=== PATIENT | male | born 1990 ===

== ENCOUNTER 2017-07-26 14:24 | Inpatient (IN) | payer MEDICAID, OTHER ==
[2017-07-26 18:23] LABS: Glucose,Whole Blood 325 mg/dL (75-99)
[2017-07-26] MEDS ORDERED: MAGNESIUM HYDROXIDE 2,400 MG/10 ML CUP PO PRN (18:43)
[2017-07-26] MEDS ORDERED: ACETAMINOPHEN TAB 325 MG TAB PO PRN (18:43)
[2017-07-26] MEDS ORDERED: MAG HYDROX/AL HYDROX/SIMETH 30 ML CUP PO PRN (18:43)
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
[2017-07-26] MEDS: INSULIN ASPART 100 UNIT/ML 1 ML 10 ML VIAL SQ SCH ×3 (18:47→20:13)
[2017-07-26 20:14] LABS: Glucose,Whole Blood 142 mg/dL (75-99)
[2017-07-26] MEDS: INSULIN DETEMIR 100 UNIT/ML 10 ML VIAL SQ SCH (20:15)
[2017-07-26] MEDS: METHADONE 5 MG TAB PO SCH (20:26)
[2017-07-26] MEDS: BACLOFEN 10 MG TAB PO SCH (20:27)
[2017-07-26] MEDS: levETIRAcetam 500 MG TAB PO SCH (20:27)
[2017-07-26] MEDS: LORazepam 1 MG TAB PO PRN (20:28)
[2017-07-26] MEDS: NICOTINE 21MG/24HR PATCH TRANSDERM SCH (20:43)
[2017-07-26 20:44] VITALS: BMI 22.5
[2017-07-26 20:56] LABS: Glucose,Whole Blood 83 mg/dL (75-99)
[2017-07-26] MEDS: GABAPENTIN 300 MG CAP PO SCH (22:35)
[2017-07-27 02:33] LABS: Glucose,Whole Blood 211 mg/dL (75-99)
[2017-07-27] MEDS: LORazepam 1 MG TAB PO PRN ×4 (02:33→19:47)
[2017-07-27] MEDS ORDERED: WATER FOR INJECTION, STERILE 10 ML IV ONE ×2 (04:05→20:49)
[2017-07-27] MEDS ORDERED: ZIPRASIDONE 20 MG VIAL IM ONE (04:05)
[2017-07-27] MEDS: ZIPRASIDONE 20 MG VIAL IM PRN ×2 (04:07→21:19)
[2017-07-27 06:18] LABS: Glucose,Whole Blood 153 mg/dL (75-99)
[2017-07-27] MEDS: INSULIN ASPART 100 UNIT/ML 1 ML 10 ML VIAL SQ SCH ×6 (07:46→17:44)
[2017-07-27] MEDS: ASPIRIN 81 MG PO SCH (08:01)
[2017-07-27] MEDS: BACLOFEN 10 MG TAB PO SCH ×3 (08:02→20:21)
[2017-07-27] MEDS: levETIRAcetam 500 MG TAB PO SCH ×2 (08:02→20:21)
[2017-07-27] MEDS: GABAPENTIN 300 MG CAP PO SCH ×3 (08:02→20:24)
[2017-07-27] MEDS: METHADONE 5 MG TAB PO SCH ×3 (08:04→20:45)
[2017-07-27] MEDS: NICOTINE 21MG/24HR PATCH TRANSDERM SCH (08:37)
[2017-07-27] MEDS: LISINOPRIL 5 MG TAB PO SCH ×2 (08:37→09:30)
[2017-07-27 08:45] LABS: HCT 35.7 % (39.0-53.0); HGB 11.6 gm/dL (13.0-17.5); MCHC 32.5 g/dL (31.0-37.0); MCV 86.4 fL (80.0-100.0); Mean Platelet Volume 7.4; Platelet Count 317 k/uL (150-450); RBC 4.13 m/uL (4.30-5.90); RDW 12.5 % (11.5-15.5); WBC 7.5 k/uL (3.8-10.6)
[2017-07-27] MEDS ORDERED: DULoxetine HCL 30 MG CAPSULE.DR PO SCH (09:00)
[2017-07-27 09:01] LABS: ALT 67 U/L (21-72); AST 58 U/L (17-59); Albumin 4.5 g/dL (3.5-5.0); Alkaline Phosphatase 112 U/L (38-126); Anion Gap 13 mmol/L; Blood Urea Nitrogen 18 mg/dL (9-20); Carbon Dioxide 29 mmol/L (22-30); Chloride 102 mmol/L (98-107); Cholesterol 166 mg/dL (<200); Glucose 70 mg/dL (74-99); HDL Cholesterol 66 mg/dL (40-60); LDL Cholesterol,Calculated 83 mg/dL (0-99); Potassium 3.9 mmol/L (3.5-5.1); Sodium 144 mmol/L (137-145); Total Bilirubin 0.3 mg/dL (0.2-1.3); Total Protein 7.2 g/dL (6.3-8.2); Triglycerides 84 mg/dL (<150)
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
--- NOTE | 2017-07-27 11:31 | XR ---
EXAMINATION TYPE: XR hand complete LT DATE OF EXAM: 07/27/2017 CLINICAL HISTORY: Finger fracture 3 weeks ago. TECHNIQUE: Frontal, lateral and oblique images of the left hand are obtained. COMPARISON: None. FINDINGS: Lateral view is suboptimal due to osseous overlap. Healing fracture distal metadiaphysis th ird metacarpal is present with callus formation. No acute fracture or dislocation is seen. Joint spac es are preserved. Overlying soft tissue is unremarkable. IMPRESSION: There is healing or subacute fracture distal metadiaphysis third metacarpal.
[2017-07-27] MEDS: IBUPROFEN 600 MG TAB PO PRN (11:40)
[2017-07-27] MEDS: hydrOXYzine PAMOATE 25 MG CAP PO PRN ×2 (11:47→17:22)
[2017-07-27 12:46] LABS: Glucose,Whole Blood 194 mg/dL (75-99)
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
[2017-07-27 17:28] LABS: Glucose,Whole Blood 223 mg/dL (75-99)
[2017-07-27 17:32] LABS: Hemoglobin A1C 11.9 % (4.0-6.0)
[2017-07-27] MEDS ORDERED: INSULIN ASPART 100 UNIT/ML 1 ML 10 ML VIAL SQ ONE (17:39)
[2017-07-27 20:17] LABS: Glucose,Whole Blood 233 mg/dL (75-99)
[2017-07-27] MEDS: INSULIN DETEMIR 100 UNIT/ML 10 ML VIAL SQ SCH (20:23)
[2017-07-28 02:25] LABS: Glucose,Whole Blood 197 mg/dL (75-99)
[2017-07-28] MEDS: IBUPROFEN 600 MG TAB PO PRN (04:40)
[2017-07-28] MEDS: LORazepam 1 MG TAB PO PRN ×2 (05:22→11:30)
[2017-07-28 05:56] LABS: Glucose,Whole Blood 174 mg/dL (75-99)
[2017-07-28] MEDS: NICOTINE 21MG/24HR PATCH TRANSDERM SCH (08:02)
[2017-07-28] MEDS: METHADONE 5 MG TAB PO SCH ×3 (08:02→21:21)
[2017-07-28] MEDS: levETIRAcetam 500 MG TAB PO SCH ×2 (08:02→21:21)
[2017-07-28] MEDS: CITALOPRAM HYDROBROMIDE 20 MG TAB PO SCH (08:03)
[2017-07-28] MEDS: INSULIN ASPART 100 UNIT/ML 1 ML 10 ML VIAL SQ SCH ×3 (08:03→18:12)
[2017-07-28] MEDS: ASPIRIN 81 MG PO SCH (08:03)
[2017-07-28] MEDS: LISINOPRIL 5 MG TAB PO SCH (08:03)
[2017-07-28] MEDS: BACLOFEN 10 MG TAB PO SCH ×3 (08:03→21:21)
[2017-07-28] MEDS: GABAPENTIN 300 MG CAP PO SCH ×3 (08:03→21:21)
[2017-07-28 09:17] LABS: Glucose,Whole Blood 40 mg/dL (75-99)
[2017-07-28 09:41] LABS: Glucose,Whole Blood 36 mg/dL (75-99)
[2017-07-28] MEDS ORDERED: GLUCAGON 1 MG/ML VIAL ONE (09:42)
[2017-07-28] MEDS ORDERED: DEXTROSE 10 % IN WATER 250 ML IV ONE (09:45)
[2017-07-28] MEDS ORDERED: DEXTROSE 5% IN WATER 500 ML IV SCH (10:00)
[2017-07-28] MEDS ORDERED: DEXTROSE 10% IN WATER 500 ML IV ONE (10:00)
[2017-07-28 10:02] LABS: Glucose,Whole Blood 119 mg/dL (75-99)
[2017-07-28 10:26] LABS: Glucose,Whole Blood 245 mg/dL (75-99)
[2017-07-28 10:26] LABS: Glucose,Whole Blood 135 mg/dL (75-99)
--- NOTE | 2017-07-28 11:03 | P.PN ---
Subjective Progress Note Date: 07/28/17 Principal diagnosis: diabetes Patient is a 27-year-old male with a past medical history of type 1 diabetes mellitus, prior stroke with residual left-sided weakness, chronic kidney disease, and gastroparesis who presented to the mental health unit secondary to overdose. Today his blood sugar was 174 before breakfast. He received his home dose of 10 units of novolog and ate breakfast. His blood sugar then dropped to 40 and he was given juice. We called and A team. IV was started he was given 1 amp of D50 and was started on a D 10 gtt. After eating and 1 amp of D150 his blood sugar was 132, it then went up to 150. On recheck 15 minutes later with gtt started it was 245. He will be maintained on D10 for 1 hour at 100 cc/hr and then sugar will be rechecked. Patient seen and examined at bedside.He complains of feeling tired and hungry. He denies chest pain and shortness of breath. He admitted yesterday that he has been using his mothers insulin and not checking his sugars. Patient was monitored multiple times for approximately 1 hours by myself. Objective - Vital Signs Vital signs: Vital Signs Temp 98.1 F 07/28/17 04:41 Pulse 109 H 07/28/17 04:41 Resp 16 07/28/17 04:41 BP 142/88 07/28/17 04:41 Pulse Ox 98 07/26/17 17:40 Intake & Output 07/27/17 07/28/17 07/28/17 18:59 06:59 18:59 Weight 61.4 kg - Exam On arrival General: non toxic, no distress, appears older than stated age, normal weight Head: atraumatic, normocephalic, symmetric Eyes: EOMI, no lid lag, anicteric sclera Cardiovascular: S1S2 reg, no murmur, positive posterior tibial pulse bilateral, no edema, capillary refill less than 2 seconds Lungs: CTA bilateral, no rhonchi, no rales , no accessory muscle use Neuro: + tremors Psych: lethargic, opening eyes to command and drinking On last check, Patient asking for pain medications and wanting to be prescribed norco on discharged and states that he wont be able to make it to his methadone appointment. I told the patient with with his history I will not be prescribing him norco on discharge. I again stated that we could work with him and his mother to get him to the methadone clinic on discharge. General: non toxic, no distress, appears older than stated age, normal weight Head: atraumatic, normocephalic, symmetric Eyes: EOMI, no lid lag, anicteric sclera ENT: Nose and ears atraumatic Neck: No thyromegaly, no cervical lymphadenopathy, trachea midline, supple Mouth: no lip lesion, mucus membranes moist Cardiovascular: S1S2 reg, no murmur, positive posterior tibial pulse bilateral, no edema, capillary refill less than 2 seconds Lungs: CTA bilateral, no rhonchi, no rales , no accessory muscle use Neuro: CN II-XI grossly intact, walking improved, no tremors noted Psych: Awake, alert, agressive. - Labs CBC & Chem 7: 07/27/17 08:17 07/28/17 09:33 Labs: Abnormal Lab Results - Last 24 Hours (Table) 07/27/17 07/27/17 07/27/17 Range/Units 08:17 12:40 17:25 Glucose (74-99) mg/dL POC Glucose (mg/dL) 194 H 223 H (75-99) mg/dL Hemoglobin A1c 11.9 H (4.0-6.0) % 07/27/17 07/28/17 07/28/17 Range/Units 20:15 02:07 05:45 Glucose (74-99) mg/dL POC Glucose (mg/dL) 233 H 197 H 174 H (75-99) mg/dL Hemoglobin A1c (4.0-6.0) % 07/28/17 07/28/17 07/28/17 Range/Units 09:14 09:30 09:33 Glucose 32 L* (74-99) mg/dL POC Glucose (mg/dL) 40 L 36 L (75-99) mg/dL Hemoglobin A1c (4.0-6.0) % 07/28/17 07/28/17 07/28/17 Range/Units 09:49 10:05 10:22 Glucose (74-99) mg/dL POC Glucose (mg/dL) 119 H 135 H 245 H (75-99) mg/dL Hemoglobin A1c (4.0-6.0) % Assessment and Plan Assessment: Type 1 diabetes mellitus, with episode of hypoglycemia -Accucheck q 15 mins X 3 completed, given 1 amp of D50 and started on D10 gtt at 100cc/hr X 1 hours, recheck sugar in 1 hours. Monitor for 4 hours from start of incident and then can be discharged. -Discharge Rx written for novolog flex pen 6 units with meal, levemir flex pen 10 units at night -hemoglobin A1c 11.9 Burn to left upper extremity -Silvadene cream and cover with dressing daily. Chronic pain - continue methadone add motrin - would avoid increasing methadone f/u at methadone clinic neuropathy - neurontin Hypertension, controlled -Continue with lisinopril -Follow blood pressures Cerebrovascular accident with resulting choreiform movements and seizure disorder -Aspirin daily -no indication for statin, LDL <70 -Continue with Keppra -Continue with walker -Physical therapy evaluation -Continue methadone for pain and baclofen for spasticity GERD -Not chronically on PPI and will not start on at this point in time Chronic kidney disease stage IV per patient- ruled out creatinine with Creatinine clearance of >60 Depression with suicide attempt -Your psych management Non psych meds written Rx for discharge.
[2017-07-28] MEDS: ZIPRASIDONE 20 MG VIAL IM PRN ×2 (11:30→23:03)
[2017-07-28 11:34] LABS: Glucose,Whole Blood 448 mg/dL (75-99)
[2017-07-28] MEDS: hydrOXYzine PAMOATE 25 MG CAP PO PRN ×2 (11:54→18:14)
[2017-07-28] MEDS ORDERED: INSULIN ASPART 100 UNIT/ML 1 ML 10 ML VIAL SQ ONE ×2 (13:35→16:00)
[2017-07-28 13:36] LABS: Glucose,Whole Blood >600 mg/dL (75-99)
[2017-07-28 14:41] LABS: Glucose,Whole Blood >600 mg/dL (75-99)
--- NOTE | 2017-07-28 15:49 | P.PN ---
Progress Note - Text Progress Note Date: 07/28/17 Interval History: Patient is a 27-year-old male who was admitted after transfer from another hospital due to a Valium overdose. This morning the patient was placed on one-to-one after 2 falls, was not following redirection to use a wheelchair and was demanding and complaining that he was having pain everywhere. Patient was seen this morning and he reported that the tremor increases when he is more active in his legs and arms and it was noticeable this morning. Patient reported that he cannot have his girlfriend pick him up because she is dealing with her grandmother is currently in the hospital and his mother and stepfather would not drive him to warn to go to the methadone clinic. Patient was not reporting any suicidal or homicidal ideation at that time. Mental Status: Appearance/Attitude: Patient was in a wheelchair, dressed in a casual clothes, made good eye contact and was superficially cooperative Behavior: Patient did not display any psychomotor retardation, but was irritable and easily agitated Speech/Language: Patient's speech was spontaneous and of normal volume and rhythm and he was coherent. Thought Process: patient was goal-directed, there was no evidence of loose associations or flights of ideas Thought Content: patient denied any auditory or visual hallucinations no delusions or paranoid ideation were elicited. Patient was increasingly demanding and agitated, stating that he needed his pain medication and wanted Vicodin prescribed because he was not to be able to get to the methadone clinic , demanding that he be discharged from the hospital and increasingly became agitated. Patient was also demanding that he have his Ativan Suicidal/Homicidal Ideation: patient denied any suicidal or homicidal ideation at this time. Sensorium/Cognition: Patient is alert and oriented to person, place, and time and his recent and remote memory are grossly intact. Mood/Affect: patient's mood is agitated and irritable and his affect is appropriate to his mood. Insight/Judgment: patient's insight and judgment are limited. Assessment: patient was initially agitated this morning and demanding stating that he needed Vicodin because he was not to be able to make an appointment at the methadone clinic because his mother and stepfather would not drive him there and his girlfriend was not able to do so. Patient later that morning became hypoglycemic and was treated for this, discharge was Considered once he is what sugars were stable however the patient became increasingly agitated demanding Ativan, demanding that he be discharged and demanding that he be given opiate pain medication because he could not attend the methadone clinic today. Patient at that time required SNOW Pool as he was becoming agitated hanging his arms on the wheelchair. Plan: Patient will continue on Celexa 10 mg every morning to target his depression and irritability, his other medications have been maintained and his insulin dosage has been adjusted by the medical scribe. Patient continues on methadone and his Ativan dose was decreased to 0.5 mg 3 times a day when necessary. Discharge will not be done today until the patient can arrange to attend a methadone clinic once he is discharged. P
[2017-07-28] MEDS: LORazepam 0.5 MG TAB PO PRN ×2 (15:51→22:27)
[2017-07-28 18:09] LABS: Glucose,Whole Blood 419 mg/dL (75-99)
[2017-07-28 20:41] LABS: Glucose,Whole Blood 234 mg/dL (75-99)
[2017-07-28] MEDS ORDERED: INSULIN DETEMIR 100 UNIT/ML 10 ML VIAL SQ SCH (21:00)
[2017-07-28] MEDS ORDERED: ZIPRASIDONE 20 MG VIAL IM ONE (23:02)
[2017-07-28] MEDS ORDERED: WATER FOR INJECTION, STERILE 10 ML IV ONE (23:02)
[2017-07-29 03:26] LABS: Glucose,Whole Blood 391 mg/dL (75-99)
[2017-07-29] MEDS: hydrOXYzine PAMOATE 25 MG CAP PO PRN (03:56)
[2017-07-29] MEDS: IBUPROFEN 600 MG TAB PO PRN (04:14)
[2017-07-29] MEDS: ZIPRASIDONE 20 MG VIAL IM PRN (04:36)
[2017-07-29] MEDS ORDERED: HALOPERIDOL LACTATE 5 MG/ML 1 ML VIAL IM STA (05:15)
[2017-07-29] MEDS ORDERED: LORazepam 2 MG/ML INJ IM STA (05:16)
[2017-07-29 06:16] LABS: Glucose,Whole Blood 451 mg/dL (75-99)
[2017-07-29] MEDS: GABAPENTIN 300 MG CAP PO SCH (08:08)
[2017-07-29] MEDS: NICOTINE 21MG/24HR PATCH TRANSDERM SCH (08:08)
[2017-07-29] MEDS: CITALOPRAM HYDROBROMIDE 20 MG TAB PO SCH (08:09)
[2017-07-29] MEDS: METHADONE 5 MG TAB PO SCH ×2 (08:09→15:05)
[2017-07-29] MEDS: BACLOFEN 10 MG TAB PO SCH (08:09)
[2017-07-29] MEDS: LISINOPRIL 5 MG TAB PO SCH (08:09)
[2017-07-29] MEDS: levETIRAcetam 500 MG TAB PO SCH (08:09)
[2017-07-29] MEDS: ASPIRIN 81 MG PO SCH (08:09)
[2017-07-29] MEDS: LORazepam 0.5 MG TAB PO PRN ×2 (08:11→13:56)
[2017-07-29] MEDS: INSULIN ASPART 100 UNIT/ML 1 ML 10 ML VIAL SQ SCH ×2 (08:14→13:03)
[2017-07-29 08:33] LABS: Glucose,Whole Blood 391 mg/dL (75-99)
--- NOTE | 2017-07-29 09:32 | P.DS ---
Providers Date of admission: 07/26/17 17:20 Expected date of discharge: 07/29/17 Attending physician: Olivia Louie MD Consults: 07/26/17 18:43 Consult Physician Routine Consulting Provider: Demetria Arrington Consult Reason/Comments: h&P Do you want consulting provider notified?: Already Contacted Primary care physician: [facility] Course: Discharge Diagnosis: Depressive disorder due to another medical condition, with depressive features Reason for Admission: Patient is a 27-year-old male who was transferred from [facility] after having taken an overdose of Valium in a suicide attempt. Patient states that he took 18 5 mg Valiums after he got into a fight with his sister he states he then went outside and threw them up and states it was an impulsive decision. He states he and his sister had gotten into an argument about the patient's phone being turned off when she contacted his old roommate she blamed him for not treating the roommate well and getting into an argument with him and having his phone turned off. Patient states that he had been living with this roommate for the last 2 months, patient states that he had a stroke in March and was living with his mother and then moved in with this gentleman who was all old friend. He states that his roommate is iraheta and that the patient was asked by the roommate to sleep with him. Patient states when he brought his girlfriend over the roommate kicked him out and he moved in with his sister. Patient had been recently discharged from [facility] where he was from July 14 to the going there stating he was suicidal just so that he could have a bed as he states he had no place to live at that time. Patient states when he was arguing with his sister he threatened to kill himself his sister egg him on and to get her to shut up he took the pills, then went outside threw them up and she called EMS. Patient states that he was fighting with his former roommate when he went to [facility] and return to live there with him once he was discharged. Patient states that he has never had any psychiatric treatment prior to his having a stroke in March 2017. Patient states he had not been feeling well at work and had gone home states that he was vomiting at the time and the next thing he knows he awakened in the hospital. He states that he was told that he had a brain stem stroke, caused by a low sodium an that he had renal failure. Patient states that after the stroke he began to have tremors and states he was placed on Valium for this while in the hospital. He reports that initially the neurologist started him on 2 mg twice a day and that at [facility] city been increased to 5 mg twice a day. He states that he was also placed on amantadine and Sinemet either neurologist when in the hospital and he stopped the medications at home because he thought it was making him worse. He describes flapping tremors and cramping in his arms and states that he was using a wheelchair at home to ambulate. He then was using a walker. He was also placed on Prozac while in the hospital 20 mg twice a day which was increased to 50 mg by his primary care physician and he states that he did not feel that the Prozac had been effective at all. He states when he returned home he wasn't able to do things secondary to the tremors and was hating his life. He states that about 2 months ago the tremors decreased. Patient states that when he was in [facility] he was begun on Cymbalta 30 mg twice a day, Abilify and trazodone and reports that he did not feel that any of these medications had been successful either. He was to follow-up at [place] after his discharge from [facility] she never did. Patient states that he was also placed on Keppra after the stroke secondary to seizures that he had afterwards. He reports no seizures since he has been taking his Keppra. Patient states on the Cymbalta he has not noticed that he is any different still not happy, did not increase his anger and he states that while he was at [facility] he got into more arguments and fights there area patient states that when he was in high school he would get into fights quite frequently but reports no difficulties since that time. States that he is easily irritated now by people being "ignorant" and states he is in more verbal disagreements and fights with people. He states that prior to March he was not having any of these difficulties, was not feeling depressed and has no prior history of suicidal thoughts or suicidal attempts. He states once he had the stroke that he got very few visits from friends, his ex girlfriend left him on the day that he had the stroke and that these are the reasons he was feeling increasingly depressed at home. Patient had no follow-up psychiatric care after his discharge from the hospital in March and did not follow-up with outpatient appointments after his discharge from [facility]. Patient has no prior psychiatric history and does not endorse a history of any psychotic symptoms, manic symptoms and states that his symptoms of depression started in March after he had the stroke. Patient states that he has no prior history of suicide attempts. Mental status on admission : Appearance/Attitude: Patient was appropriately dressed, was not using a wheelchair to ambulate and did not have any evidence of an unsteady gait or any tremors in his hands or legs. Patient made good eye contact and was cooperative. Behavior: Patient did not display any psychomotor agitation or retardation. Speech/Language: Patient's speech was spontaneous of normal volume and rhythm and he was coherent Thought Process: Patient was goal-directed there is no evidence of loose associations or flight of ideas Thought Content: Patient denied any auditory or visual hallucinations no paranoid or delusional ideation was elicited. Patient stated that he slept well and states that he remains depressed due to his stroke and the difficulties that he has had since that time. Suicidal/Homicidal Ideation: Patient denied any current suicidal or homicidal ideation Sensorium/Cognition: Patient is alert and oriented to person place and time and his recent and remote memory are grossly intact Mood/Affect: patient's mood is slightly depressed, affect is appropriate Insight/Judgment: patient's insight and judgment are fair Hospital Course: Patient was admitted on a voluntary basis, routine observation was ordered as well as group and activity therapy. Patient had routine laboratory studies ordered as well as a medical consultation. Patient reported that the Cymbalta and Abilify and trazodone were not helpful at all and he was continuing to feel depressed as well as easily agitated. Patient denied any suicidal ideation during his hospital stay and we discussed starting Celexa to see if this would decrease his agitation and irritability as well as improve his depressive symptoms. Patient was begun on Celexa 20 mg a day and was discontinued from his Abilify, trazodone, and Cymbalta. Patient was continued on Keppra, lisinopril, Neurontin, baclofen, insulin and was placed on methadone for his pain. Patient was also on Ativan when necessary, and his Valium was discontinued. Patient was also using a wheelchair to ambulate, on 2 occasions patient fell once while trying to put socks on and once because he was refusing to use the wheelchair patient did not sustain any injuries from his falls. Patient was preparing for discharge yesterday when his blood sugar dropped low and required IV glucose treatment and due to his continued elevated blood sugar throughout the afternoon his discharge was held until today. Patient continued to have episodes on the unit where he would be demanding increase in his pain medication, Ativan more frequently and would become agitated pounding on the wheelchair and then patient would calm apologize for his behavior and again request an increase in his pain medication. Patient reported no suicidal ideation, there is no evidence of any psychotic process while on the unit and the patient was seen by the diabetic teacher for the hospital prior to his discharge. Patient had plans to live with his girlfriend however she was caring for her grandmother in the hospital so the patient will return to live with his parents. Patient was agreeable for discharge. Patient's blood sugars are tending to run in the 300s since his episode of hypoglycemia yesterday, his insulin was adjusted yesterday to 8 units from 10, patient had an episode of hypoglycemia yesterday with sugars in the 40s and patient will follow-up with his primary care physician to continue to adjust his insulin once he is out of the hospital and into his regular routine Laboratory Last Values WBC 7.5 k/uL (3.8-10.6) 07/27/17 08:17 RBC 4.13 m/uL (4.30-5.90) L 07/27/17 08:17 Hgb 11.6 gm/dL (13.0-17.5) L 07/27/17 08:17 Hct 35.7 % (39.0-53.0) L 07/27/17 08:17 MCV 86.4 fL (80.0-100.0) 07/27/17 08:17 MCH 28.0 pg (25.0-35.0) 07/27/17 08:17 MCHC 32.5 g/dL (31.0-37.0) 07/27/17 08:17 RDW 12.5 % (11.5-15.5) 07/27/17 08:17 Plt Count 317 k/uL (150-450) 07/27/17 08:17 Sodium 144 mmol/L (137-145) 07/27/17 08:17 Potassium 3.9 mmol/L (3.5-5.1) 07/27/17 08:17 Chloride 102 mmol/L (98-107) 07/27/17 08:17 Carbon Dioxide 29 mmol/L (22-30) 07/27/17 08:17 Anion Gap 13 mmol/L 07/27/17 08:17 BUN 18 mg/dL (9-20) 07/27/17 08:17 Creatinine 1.24 mg/dL (0.66-1.25) 07/27/17 08:17 Est GFR (MDRD) Af Amer >60 (>60 ml/min/1.73 sqM) 07/27/17 08:17 Est GFR (MDRD) Non-Af >60 (>60 ml/min/1.73 sqM) 07/27/17 08:17 Glucose 624 mg/dL (74-99) H* 07/28/17 14:51 POC Glucose (mg/dL) 391 mg/dL (75-99) H 07/29/17 08:07 POC Glu Blending Plant Operator ID Devora Thurman 07/29/17 08:[address] Glu mg/dL 295 07/27/17 08:17 Hemoglobin A1c 11.9 % (4.0-6.0) H 07/27/17 08:17 Calcium 10.0 mg/dL (8.4-10.2) 07/27/17 08:17 Total Bilirubin 0.3 mg/dL (0.2-1.3) 07/27/17 08:17 AST 58 U/L (17-59) 07/27/17 08:17 ALT 67 U/L (21-72) 07/27/17 08:17 Alkaline Phosphatase 112 U/L (38-126) 07/27/17 08:17 Total Protein 7.2 g/dL (6.3-8.2) 07/27/17 08:17 Albumin 4.5 g/dL (3.5-5.0) 07/27/17 08:17 Triglycerides 84 mg/dL (<150) 07/27/17 08:17 Cholesterol 166 mg/dL (<200) 07/27/17 08:17 LDL Cholesterol, Calc 83 mg/dL (0-99) 07/27/17 08:17 HDL Cholesterol 66 mg/dL (40-60) H 07/27/17 08:17 TSH 2.110 mIU/L (0.465-4.680) 07/27/17 08:17 Allergies No Known Allergies Allergy (Verified 07/26/17 20:48) Discharge Mental Status: Appearance/Attitude: Patient is dressed in casual clothes, using a wheelchair to assist with his ambulation makes good eye contact and is cooperative. Patient has evidence of tremors and unsteady gait when ambulating without the use of the wheelchair as a walker Behavior: Patient does not display any psychomotor agitation or retardation. Speech/Language: Patient's speech is spontaneous and of normal volume and rhythm and he is coherent Thought Process: Patient is goal-directed there is no evidence of loose association or flight of ideas Thought Content: Patient denies auditory or visual hallucinations, no paranoid or delusional ideation is elicited. Patient slept well and states he is eating well. Suicidal/Homicidal Ideation: Patient denies any current suicidal or homicidal ideation. Sensorium/Cognition: Patient is alert and oriented to person, place, time and his recent and remote memory are grossly intact Mood/Affect: Patient's mood is euthymic, his affect is appropriate Insight/Judgment: Patient's insight and judgment are fair Risk Assessment: Patient's risk is moderate due to his noncompliance with medication Discharge Plan: Patient will be discharged on Keppra, lisinopril, Neurontin, baclofen, insulin and will continue on Celexa 20 mg and Vistaril 50 mg 4 times a day when necessary to target his anxiety and depression. Patient will be followed at a methadone clinic in [place] where he will go today upon leaving the hospital to continue on his methadone for pain. Patient was also instructed to follow-up with his primary care physician, patient currently has no neurologist following him but will investigate this with his primary care physician. Patient will also follow up with [facility] in [place]. Patient is given prescriptions for the above medications and will live with his parents. Patient Condition at Discharge: Stable Plan - Discharge Summary Discharge Rx Participant: No New Discharge Prescriptions: New RX: Aspirin 81 mg PO DAILY chew RX: Baclofen [Lioresal] 10 mg PO TID #45 tab RX: Gabapentin [Neurontin] 600 mg PO TID #45 cap Insulin Aspart [NovoLOG Flexpen] 6 units SQ AC-TID #5 pen Insulin Glargine,Hum.rec.anlog [Lantus Solostar] 10 unit SQ HS #5 pen RX: levETIRAcetam [Keppra] 1,000 mg PO Q12HR #30 tab RX: Lisinopril [Zestril] 5 mg PO DAILY #30 tab RX: Citalopram Hydrobromide [CeleXA] 20 mg PO DAILY #14 tab RX: hydrOXYzine PAMOATE [Vistaril] 50 mg PO Q6HR PRN #28 cap PRN Reason: Anxiety RX: Methadone [Dolophine] 5 mg PO TID tab Continue RX: Ondansetron [Zofran ODT] 4 mg PO Q12HR PRN PRN Reason: Nausea RX: SILVER sulfADIAZINE Cream [Silvadene 1% Cream] 1 applic TOPICAL BID Discontinued ARIPiprazole [Abilify] 2 mg PO DAILY Cyclobenzaprine [Flexeril] 5 mg PO TID Diazepam [Valium] 2 mg PO BID PRN PRN Reason: Anxiety Haloperidol [Haldol] 0.5 tab PO DAILY HYDROcodone/APAP 10-325MG [[place] 10-325] 1 tab PO TID Insulin Glargine [Lantus] 20 unit SQ HS INSULIN LISPRO (HumaLOG) [HumaLOG] 1 - 10 units SQ ACHS Methadone [Dolophine] 5 mg PO Q12HR RX: traZODone HCL 50 mg PO HS No Action Baclofen [Lioresal] 10 mg PO TID levETIRAcetam [Keppra] 1,000 mg PO Q12HR Lisinopril [Zestril] 5 mg PO DAILY Discharge Medication List Baclofen [Lioresal] 10 mg PO TID 07/26/17 [History] Lisinopril [Zestril] 5 mg PO DAILY 07/26/17 [History] RX: Ondansetron [Zofran ODT] 4 mg PO Q12HR PRN 07/26/17 [History] RX: SILVER sulfADIAZINE Cream [Silvadene 1% Cream] 1 applic TOPICAL BID [History] levETIRAcetam [Keppra] 1,000 mg PO Q12HR 07/26/17 [History] Insulin Aspart [NovoLOG Flexpen] 6 units SQ AC-TID #5 pen 07/28/17 [Rx] Insulin Glargine,Hum.rec.anlog [Lantus Solostar] 10 unit SQ HS #5 pen 07/28/17 [ Rx] RX: Aspirin 81 mg PO DAILY chew 07/28/17 [Rx] RX: Baclofen [Lioresal] 10 mg PO TID #45 tab 07/28/17 [Rx] RX: Gabapentin [Neurontin] 600 mg PO TID #45 cap 07/28/17 [Rx] RX: Lisinopril [Zestril] 5 mg PO DAILY #30 tab 07/28/17 [Rx] RX: levETIRAcetam [Keppra] 1,000 mg PO Q12HR #30 tab 07/28/17 [Rx] RX: Citalopram Hydrobromide [CeleXA] 20 mg PO DAILY #14 tab 07/29/17 [Rx] RX: Methadone [Dolophine] 5 mg PO TID tab 07/29/17 [Rx] RX: hydrOXYzine PAMOATE [Vistaril] 50 mg PO Q6HR PRN #28 cap 07/29/17 [Rx] Follow up Appointment(s)/Referral(s): intake,intake [Other] - 07/29/17 [facility] [Outside] - 08/03/17 1:00 pm (08-03-17 @ 1:00 for an intake at [place] Location) Essie Rutherford MD [Primary Care Provider] - 07/31/17 8:00 am Patient Instructions/Handouts: Depression (GEN), Type 1 Diabetes in Adults (GEN ), Suicide Prevention for Adults (GEN) Activity/Diet/Wound Care/Special Instructions: Follow-up appointment on 2017 at anytime, no later than 4:30pm with Dr. Mckoy at [facility], [id number], [facility], for Methadone dispensing/prescribing r/t pain. [facility] [employer] provides transportation to medical appointments. Please call and scheduled at least 3 business days in advance. Discharge Disposition: HOME SELF-CARE
[2017-07-29 10:54] VITALS: BP 117/64; PULSE 93; RESP 18; TEMP 98
[2017-07-29 13:20] LABS: Glucose,Whole Blood 385 mg/dL (75-99)
== END 2017-07-29 15:17 | disposition home or self-care (01) | DRG 884 ==
LOC: 3MHU 17:20
PROVIDERS: ADMIT Psychiatry & Neurology Psychiatry; ATTEND Psychiatry & Neurology Psychiatry
DX: F06.31 Mood disorder due to known physiological condition with depressive features (principal); E10.22 Type 1 diabetes mellitus with diabetic chronic kidney disease; E10.649 Type 1 diabetes mellitus with hypoglycemia without coma; I69.354 Hemiplegia and hemiparesis following cerebral infarction affecting left non-dominant side; N18.4 Chronic kidney disease, stage 4 (severe); E10.43 Type 1 diabetes mellitus with diabetic autonomic (poly)neuropathy; E10.65 Type 1 diabetes mellitus with hyperglycemia; F17.200 Nicotine dependence, unspecified, uncomplicated; F41.9 Anxiety disorder, unspecified; G40.909 Epilepsy, unspecified, not intractable, without status epilepticus; G89.29 Other chronic pain; I12.9 Hypertensive chronic kidney disease with stage 1 through stage 4 chronic kidney disease, or unspecified chronic kidney disease; K21.9 Gastro-esophageal reflux disease without esophagitis; K31.84 Gastroparesis; M54.9 Dorsalgia, unspecified; R25.1 Tremor, unspecified; R45.1 Restlessness and agitation; T22.012A Burn of unspecified degree of left forearm, initial encounter; T21.02XA Burn of unspecified degree of abdominal wall, initial encounter; T42.4X2A Poisoning by benzodiazepines, intentional self-harm, initial encounter; Z79.4 Long term (current) use of insulin; Z79.899 Other long term (current) drug therapy; Z79.891 Long term (current) use of opiate analgesic; Z91.19 Patient's noncompliance with other medical treatment and regimen; Z59.0 Homelessness; Z82.49 Family history of ischemic heart disease and other diseases of the circulatory system
CPT/HCPCS: 80053; 80061; 82947; 83036; 84443; 85027

== ENCOUNTER 2017-11-13 15:56 | Emergency (ER) | payer OTHER ==
[2017-11-13] MEDS ORDERED: DIPH,PERTUS(ACELL)TETVAC-LF 0.5 ML VIAL IM ONE ×2 (16:09→23:34)
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
[2017-11-13] MEDS ORDERED: ceFAZolin 2,000 MG in DEXTROSE/WATER 1 50ML.BAG IVPB STA (16:40)
[2017-11-13] MEDS ORDERED: ceFAZolin IN SWFI 2 GM/20 ML SYRINGE IVP STA (16:43)
[2017-11-13 16:53] LABS: Basophils # (A) 0.1 k/uL (0-0.2); Basophils % (A) 1 %; Eosinophils # (A) 0.6 k/uL (0-0.7); Eosinophils % (A) 11 %; HCT 28.9 % (39.0-53.0); Lymphocytes # (A) 1.6 k/uL (1.0-4.8); Lymphocytes % (A) 31 %; MCH 27.7 pg (25.0-35.0); MCHC 34.6 g/dL (31.0-37.0); MCV 80.2 fL (80.0-100.0); Mean Platelet Volume 8.2; Monocytes # (A) 0.2 k/uL (0-1.0); Monocytes % (A) 5 %; Neutrophils # (A) 2.5 k/uL (1.3-7.7); Neutrophils % (A) 50 %; Platelet Count 195 k/uL (150-450); RBC 3.61 m/uL (4.30-5.90); RDW 12.7 % (11.5-15.5)
[2017-11-13 16:58] LABS: Amphetamine Screen,Urine Not Detected (NotDetected); Barbiturate Screen,Urine Not Detected (NotDetected); Benzodiazepines Screen,Urine Not Detected (NotDetected); Cocaine Screen,Urine Not Detected (NotDetected); Methadone Screen, Urine Not Detected (NotDetected); Opiate Screen,Urine Detected (NotDetected); Oxycodone Screen, Urine Not Detected (NotDetected); Phencyclidine Screen,Urine Not Detected (NotDetected); Tricyclic Antidepressant,Urine Not Detected (NotDetected); Urn Cannabinoid Scrn Not Detected (NotDetected)
[2017-11-13 17:05] LABS: ALT 48 U/L (21-72); AST 29 U/L (17-59); Acetaminophen <10.0 ug/mL; Albumin 3.8 g/dL (3.5-5.0); Alcohol <10 mg/dL; Alkaline Phosphatase 82 U/L (38-126); Anion Gap 11 mmol/L; Blood Urea Nitrogen 25 mg/dL (9-20); Calcium 9.6 mg/dL (8.4-10.2); Carbon Dioxide 28 mmol/L (22-30); Chloride 95 mmol/L (98-107); Glucose 430 mg/dL (74-99); Potassium 4.3 mmol/L (3.5-5.1); Salicylate <1.0 mg/dL; Sodium 134 mmol/L (137-145); Total Bilirubin 0.5 mg/dL (0.2-1.3); Total Protein 5.8 g/dL (6.3-8.2)
[2017-11-13 17:06] LABS: Prothrombin Time 9.8 sec (9.0-12.0)
[2017-11-13] MEDS ORDERED: SODIUM CHLORIDE 0.9% 500 ML IV ONE (17:16)
[2017-11-13] MEDS ORDERED: INSULIN REGULAR 100 UNIT/ML VIAL IV ONE (17:16)
[2017-11-13] MEDS: LORazepam 2 MG/ML INJ IV STA ×2 (17:20→19:52)
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
[2017-11-13] MEDS ORDERED: LIDOCAINE 1% INJ 10MG/ML (20 ML MDV) SQ ONE (17:54)
[2017-11-13] MEDS: MORPHINE SULFATE 2 MG/ML SYRINGE IVP PRN ×2 (19:17→23:39)
[2017-11-13 20:03] LABS: Basophils % (A) 1 %; Eosinophils # (A) 0.5 k/uL (0-0.7); Eosinophils % (A) 11 %; HCT 27.8 % (39.0-53.0); HGB 9.7 gm/dL (13.0-17.5); Lymphocytes # (A) 1.7 k/uL (1.0-4.8); Lymphocytes % (A) 33 %; MCH 27.7 pg (25.0-35.0); MCV 79.2 fL (80.0-100.0); Mean Platelet Volume 8.1; Monocytes # (A) 0.2 k/uL (0-1.0); Monocytes % (A) 5 %; Neutrophils # (A) 2.5 k/uL (1.3-7.7); Neutrophils % (A) 49 %; Platelet Count 201 k/uL (150-450); RBC 3.51 m/uL (4.30-5.90); RDW 12.7 % (11.5-15.5)
[2017-11-13 21:12] LABS: Glucose,Whole Blood 278 mg/dL (75-99)
[2017-11-14 01:30] LABS: Glucose,Whole Blood 307 mg/dL (75-99)
[2017-11-14] MEDS: CEPHALEXIN 500 MG CAP PO SCH ×2 (02:45→13:29)
[2017-11-14 02:51] VITALS: RESP 16
[2017-11-14] MEDS ORDERED: LORazepam 2 MG/ML INJ IM STA (03:08)
[2017-11-14] MEDS: LORazepam 2 MG/ML INJ IV STA (03:10)
[2017-11-14] MEDS ORDERED: levETIRAcetam 500 MG TAB PO STA (03:29)
[2017-11-14] MEDS ORDERED: GABAPENTIN 300 MG CAP PO STA (03:29)
[2017-11-14] MEDS ORDERED: LISINOPRIL 5 MG TAB PO STA (03:30)
[2017-11-14] MEDS: INSULIN ASPART 100 UNIT/ML 1 ML 10 ML VIAL SQ ONE ×2 (03:46→07:09)
[2017-11-14] MEDS ORDERED: MORPHINE SULFATE 2 MG/ML SYRINGE IVP STA (07:14)
[2017-11-14 08:33] LABS: Glucose,Whole Blood 376 mg/dL (75-99)
[2017-11-14] MEDS ORDERED: INSULIN ASPART 100 UNIT/ML 1 ML 10 ML VIAL SQ STA (08:34)
[2017-11-14 10:05] LABS: Glucose,Whole Blood 327 mg/dL (75-99)
[2017-11-14 12:46] LABS: Glucose,Whole Blood 156 mg/dL (75-99)
[2017-11-14 12:52] VITALS: BP 135/83; TEMP 97.6
[2017-11-14 13:10] VITALS: PULSE 76
[2017-11-14] MEDS: MORPHINE SULFATE 2 MG/ML SYRINGE IVP PRN (13:37)
[2017-11-14] MEDS ORDERED: clonazePAM 1 MG TAB PO STA (13:48)
== END 2017-11-14 14:36 ==
LOC: EC 15:56
DX: S71.111A Laceration without foreign body, right thigh, initial encounter (principal); F32.9 Major depressive disorder, single episode, unspecified; F10.129 Alcohol abuse with intoxication, unspecified; R00.0 Tachycardia, unspecified; R61 Generalized hyperhidrosis; I10 Essential (primary) hypertension; G40.909 Epilepsy, unspecified, not intractable, without status epilepticus; F17.200 Nicotine dependence, unspecified, uncomplicated; Z79.899 Other long term (current) drug therapy; Z53.20 Procedure and treatment not carried out because of patient's decision for unspecified reasons; Z23 Encounter for immunization; Z53.8 Procedure and treatment not carried out for other reasons; W26.0XXA Contact with knife, initial encounter
CPT/HCPCS: 82075; 36415 ×2; 93005; 80053; 85025; 85610; 80306; 83520 ×2; 80320; 73706; 90715; 99285; 96374; 96375 ×2; 96376 ×5; 96361 ×15; 90471; J2060 ×2; J2001; J2270 ×2; J0690; Q9967

== ENCOUNTER 2018-04-11 16:08 | Emergency (ER) | payer OTHER ==
[2018-04-11 16:17] VITALS: RESP 18; TEMP 98.5
--- NOTE | 2018-04-11 17:34 | ED ---
General Adult HPI <Bo Del Rio - Last Filed: 04/12/18 01:53> - General Source: patient, RN notes reviewed Mode of arrival: ambulatory Limitations: no limitations <Rosales Hernandez - Last Filed: 04/13/18 10:13> - General Chief complaint: Psychiatric Symptoms Stated complaint: Petition/Suicidal Time Seen by Provider: 04/11/18 16:31 - History of Present Illness Initial comments: 28-year-old male presents to the emergency department for a chief complaint of suicidal thoughts. Patient states he has chronic back pain from his seizure a year ago. He states it worsened in the past 5 days. He states he can no longer stand the pain and 7 days ago became depressed. He denies recent worsening pain, saddle anesthesia, bladder/bowel changes. He states that a few days ago he stopped taking his insulin and is a type I diabetic. He states he did this to "put him out of his pain." Patient admits to suicidal thoughts and states this is why he stopped taking his insulin. He also states his mother one month ago but has been emotionally difficult for him. Patient was arrested on a warrant and taken to group home. He states he refused insulin at group home when his blood glucose was 250 so they brought him here to the emergency department. Patient has no other complaints at this time including shortness of breath, chest pain, abdominal pain, nausea or vomiting, headache, or visual changes. (Rosales Hernandez) - Related Data Home Medications Medication Instructions Recorded Confirmed Baclofen [Lioresal] 10 mg PO TID 07/26/17 11/13/17 Lisinopril [Zestril] 5 mg PO DAILY 07/26/17 11/13/17 levETIRAcetam [Keppra] 1,000 mg PO Q12HR 07/26/17 11/13/17 Morphine Sulfate ER [Ms Contin 15 mg PO Q12HR PRN 11/13/17 11/13/17 15Mg] clonazePAM [KlonoPIN] 1 mg PO BID 11/14/17 11/14/17 Previous Rx's Medication Instructions Recorded Aspirin 81 mg PO DAILY chew 07/28/17 Gabapentin [Neurontin] 600 mg PO TID #45 cap 07/28/17 Insulin Aspart [NovoLOG Flexpen] 6 units SQ AC-TID #5 pen 07/28/17 Insulin Glargine,Hum.rec.anlog 10 unit SQ HS #5 pen 07/28/17 [Lantus Solostar] Citalopram Hydrobromide [CeleXA] 20 mg PO DAILY #14 tab 07/29/17 Allergies Allergy/AdvReac Type Severity Reaction Status Date / Time No Known Allergies Allergy Verified 04/11/18 16:17 Review of Systems ROS Other: All systems not noted in ROS Statement are negative. <Bo Del Rio - Last Filed: 04/12/18 01:53> ROS Other: All systems not noted in ROS Statement are negative. <Rosales Hernandez - Last Filed: 04/13/18 10:13> ROS Statement: Those systems with pertinent positive or pertinent negative responses have been documented in the HPI. Past Medical History Past Medical History: CVA/TIA, Diabetes Mellitus, GERD/Reflux, Hypertension, Seizure Disorder Additional Past Medical History / Comment(s): Type 1 diabetes mellitus with resultant gastroparesis and chronic kidney disease. Last episode of DKA was 2 years ago. 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 History of Any Multi-Drug Resistant Organisms: None Reported Past Surgical History: No Surgical Hx Reported Past Psychological History: Anxiety, Bipolar, Depression Smoking Status: Current every day smoker Past Alcohol Use History: None Reported Past Drug Use History: Cocaine, Marijuana - Past Family History Mother Additional Family Medical History / Comment(s): Diabetes, end-stage renal disease on dialysis, coronary artery disease with history of CABG <Rosales Hernandez - Last Filed: 04/13/18 10:13> General Exam Limitations: no limitations General appearance: alert, in no apparent distress Head exam: Present: atraumatic, normocephalic, normal inspection Eye exam: Present: normal appearance, PERRL, EOMI. Absent: scleral icterus, conjunctival injection, periorbital swelling ENT exam: Present: normal exam, mucous membranes moist Neck exam: Present: normal inspection, full ROM. Absent: tenderness, meningismus, lymphadenopathy Respiratory exam: Present: normal lung sounds bilaterally. Absent: respiratory distress, wheezes, rales, rhonchi, stridor Cardiovascular Exam: Present: regular rate, normal rhythm, normal heart sounds. Absent: systolic murmur, diastolic murmur, rubs, gallop, clicks GI/Abdominal exam: Present: soft, normal bowel sounds. Absent: distended, tenderness, guarding, rebound, rigid Neurological exam: Present: alert, oriented X3, CN II-XII intact Psychiatric exam: Present: suicidal ideation. Absent: homicidal ideation <Rosales Hernandez P - Last Filed: 04/13/18 10:13> Vital Signs 04/11/18 04/12/18 16:14 01:50 Temperature 98.5 F Pulse Rate 102 H 75 Respiratory 18 18 Rate Blood Pressure 119/68 174/102 O2 Sat by Pulse 98 99 Oximetry Procedures - Restraint - Face to Face Restraint Occurrence 1 Patient's Immediate Situation: Endangers others' safety, Endangers staff safety Patient's Reaction to the Intervention: Angry, Belligerent Need to Continue or Terminate Restraint or Seclusion: Continue Face to Face Eval of Restraint Date: 04/12/18 Face to Face Eval of Restraint Time: 01:45 <Bo Del Rio - Last Filed: 04/12/18 01:53> Medical Decision Making - Lab Data Result diagrams: 04/11/18 17:35 04/11/18 17:35 <Bo Del Rio - Last Filed: 04/12/18 01:53> - Lab Data Result diagrams: 04/11/18 17:35 04/11/18 17:35 <Rosales Hernandez - Last Filed: 04/13/18 10:13> - Medical Decision Making The patient has been seen by behavioral health. They have staffed with the psychiatrist, and the patient appears stable for release back to group home. He is now xiang for safety. The patient is very angry about being released back to group home and did become quite confrontational. Unable to verbally de-escalate.. (Bo Del Rio) 28-year-old male presents to the emergency department for suicidal thoughts. Plan was to quit taking insulin. Patient states he quit taking insulin a few days ago. Apparently patient was arrested today and refused to take insulin at group home when his blood glucose was 250 so they transferred him here. On exam patient appears upset. He states he has chronic back pain that worsened in the past 5 day and states this is why he is suicidal. CBC unremarkable. CMP showed a glucose of 349. Acetone is negative. Gap is 12. Creatinine is 1.59, which was 1.3 0 about 5 months ago. Patient initially refused saline and insulin. States he was very anxious, asked for something to calm him down. Patient was given Ativan and did then agree to receive both 1 L of saline and insulin. 6 units were given. (Rosales Hernandez) - Lab Data Lab Results 04/11/18 04/11/18 04/11/18 Range/Units 17:35 17:35 17:35 WBC 7.0 (3.8-10.6) k/uL RBC 4.05 L (4.30-5.90) m/uL Hgb 11.5 L (13.0-17.5) gm/dL Hct 34.0 L (39.0-53.0) % MCV 83.8 (80.0-100.0) fL MCH 28.5 (25.0-35.0) pg MCHC 33.9 (31.0-37.0) g/dL RDW 12.9 (11.5-15.5) % Plt Count 274 (150-450) k/uL Neutrophils % 71 % Lymphocytes % 19 % Monocytes % 4 % Eosinophils % 4 % Basophils % 1 % Neutrophils # 5.0 (1.3-7.7) k/uL Lymphocytes # 1.3 (1.0-4.8) k/uL Monocytes # 0.3 (0-1.0) k/uL Eosinophils # 0.3 (0-0.7) k/uL Basophils # 0.1 (0-0.2) k/uL Sodium 137 (137-145) mmol/L Potassium 4.7 (3.5-5.1) mmol/L Chloride 97 L (98-107) mmol/L Carbon Dioxide 28 (22-30) mmol/L Anion Gap 12 mmol/L BUN 21 H (9-20) mg/dL Creatinine 1.59 H (0.66-1.25) mg/dL Est GFR (CKD-EPI)AfAm 67 (>60 ml/min/1.73 sqM) Est GFR (CKD-EPI)NonAf 58 (>60 ml/min/1.73 sqM) Glucose 349 H (74-99) mg/dL POC Glucose (mg/dL) (75-99) mg/dL POC Glu Ad Setter ID Estimated Ave Glu mg/dL 258 Hemoglobin A1c 10.6 H (4.0-6.0) % Calcium 10.4 H (8.4-10.2) mg/dL Total Bilirubin 0.5 (0.2-1.3) mg/dL AST 47 (17-59) U/L ALT 51 (21-72) U/L Alkaline Phosphatase 76 (38-126) U/L Total Protein 7.3 (6.3-8.2) g/dL Albumin 4.5 (3.5-5.0) g/dL Urine Color Urine Appearance (Clear) Urine pH (5.0-8.0) Ur Specific [place] (1.001-1.035) Urine Protein (Negative) Urine Glucose (UA) (Negative) Urine Ketones (Negative) Urine Blood (Negative) Urine Nitrite (Negative) Urine Bilirubin (Negative) Urine Urobilinogen (<2.0) mg/dL Ur Leukocyte Esterase (Negative) Urine RBC (0-5) /hpf Urine WBC (0-5) /hpf Hyaline Casts (0-2) /lpf Granular Casts (0) /lpf Urine Mucus (None) /hpf Acetone, Qual Negative (Negative) 04/11/18 04/11/18 04/11/18 Range/Units 17:35 20:04 20:59 WBC (3.8-10.6) k/uL RBC (4.30-5.90) m/uL Hgb (13.0-17.5) gm/dL Hct (39.0-53.0) % MCV (80.0-100.0) fL MCH (25.0-35.0) pg MCHC (31.0-37.0) g/dL RDW (11.5-15.5) % Plt Count (150-450) k/uL Neutrophils % % Lymphocytes % % Monocytes % % Eosinophils % % Basophils % % Neutrophils # (1.3-7.7) k/uL Lymphocytes # (1.0-4.8) k/uL Monocytes # (0-1.0) k/uL Eosinophils # (0-0.7) k/uL Basophils # (0-0.2) k/uL Sodium (137-145) mmol/L Potassium (3.5-5.1) mmol/L Chloride (98-107) mmol/L Carbon Dioxide (22-30) mmol/L Anion Gap mmol/L BUN (9-20) mg/dL Creatinine (0.66-1.25) mg/dL Est GFR (CKD-EPI)AfAm (>60 ml/min/1.73 sqM) Est GFR (CKD-EPI)NonAf (>60 ml/min/1.73 sqM) Glucose (74-99) mg/dL POC Glucose (mg/dL) 442 H 371 H (75-99) mg/dL POC Glu Ad Setter Esthela Trinh Alisha [address]imated [address] Glu mg/dL Hemoglobin A1c (4.0-6.0) % Calcium (8.4-10.2) mg/dL Total Bilirubin (0.2-1.3) mg/dL AST (17-59) U/L ALT (21-72) U/L Alkaline Phosphatase (38-126) U/L Total Protein (6.3-8.2) g/dL Albumin (3.5-5.0) g/dL Urine Color Light Yellow Urine Appearance Clear (Clear) Urine pH 6.0 (5.0-8.0) Ur Specific [place] 1.007 (1.001-1.035) Urine Protein 1+ H (Negative) Urine Glucose (UA) 4+ H (Negative) Urine Ketones Trace H (Negative) Urine Blood Negative (Negative) Urine Nitrite Negative (Negative) Urine Bilirubin Negative (Negative) Urine Urobilinogen <2.0 (<2.0) mg/dL Ur Leukocyte Esterase Negative (Negative) Urine RBC <1 (0-5) /hpf Urine WBC <1 (0-5) /hpf Hyaline Casts 8 H (0-2) /lpf Granular Casts 1 (0) /lpf Urine Mucus Rare H (None) /hpf Acetone, Qual (Negative) 04/11/18 Range/Units 23:26 WBC (3.8-10.6) k/uL RBC (4.30-5.90) m/uL Hgb (13.0-17.5) gm/dL Hct (39.0-53.0) % MCV (80.0-100.0) fL MCH (25.0-35.0) pg MCHC (31.0-37.0) g/dL RDW (11.5-15.5) % Plt Count (150-450) k/uL Neutrophils % % Lymphocytes % % Monocytes % % Eosinophils % % Basophils % % Neutrophils # (1.3-7.7) k/uL Lymphocytes # (1.0-4.8) k/uL Monocytes # (0-1.0) k/uL Eosinophils # (0-0.7) k/uL Basophils # (0-0.2) k/uL Sodium (137-145) mmol/L Potassium (3.5-5.1) mmol/L Chloride (98-107) mmol/L Carbon Dioxide (22-30) mmol/L Anion Gap mmol/L BUN (9-20) mg/dL Creatinine (0.66-1.25) mg/dL Est GFR (CKD-EPI)AfAm (>60 ml/min/1.73 sqM) Est GFR (CKD-EPI)NonAf (>60 ml/min/1.73 sqM) Glucose (74-99) mg/dL POC Glucose (mg/dL) 115 H (75-99) mg/dL POC Glu Ad Setter ID Esthela Tovar Estimated Ave Glu mg/dL Hemoglobin A1c (4.0-6.0) % Calcium (8.4-10.2) mg/dL Total Bilirubin (0.2-1.3) mg/dL AST (17-59) U/L ALT (21-72) U/L Alkaline Phosphatase (38-126) U/L Total Protein (6.3-8.2) g/dL Albumin (3.5-5.0) g/dL Urine Color Urine Appearance (Clear) Urine pH (5.0-8.0) Ur Specific [place] (1.001-1.035) Urine Protein (Negative) Urine Glucose (UA) (Negative) Urine Ketones (Negative) Urine Blood (Negative) Urine Nitrite (Negative) Urine Bilirubin (Negative) Urine Urobilinogen (<2.0) mg/dL Ur Leukocyte Esterase (Negative) Urine RBC (0-5) /hpf Urine WBC (0-5) /hpf Hyaline Casts (0-2) /lpf Granular Casts (0) /lpf Urine Mucus (None) /hpf Acetone, Qual (Negative) Disposition Is patient prescribed a controlled substance at d/c from ED?: No <Bo Del Rio - Last Filed: 04/12/18 01:53> Is patient prescribed a controlled substance at d/c from ED?: No - Out of Hospital Transfer - Req. Specs Out of Hospital Transfer - Requested Specifics: Other Non-Acute (group home) <Rosales Hernandez - Last Filed: 04/13/18 10:13> Clinical Impression: DM (diabetes mellitus), type 1, uncontrolled, Adjustment disorder Disposition: OTHER INSTITUTION NOT DEFINED Condition: Fair Instructions: Mood Disorders (ED), Hypoglycemia in a Person with Diabetes (ED) , Diabetic Hyperglycemia (ED) Referrals: Essie Rutherford MD [Primary Care Provider] - 1-2 days
[2018-04-11] MEDS ORDERED: KETOROLAC 30 MG/ML 1 ML VIAL IVP STA (17:43)
[2018-04-11] MEDS: SODIUM CHLORIDE 0.9% 1,000 ML IV STA ×2 (18:12→18:58)
[2018-04-11 18:14] LABS: Appearance,Urine Clear (Clear); Basophils # (A) 0.1 k/uL (0-0.2); Basophils % (A) 1 %; Bilirubin,Urine Negative (Negative); Blood,Urine Negative (Negative); Color,Urine Light Yellow; Eosinophils # (A) 0.3 k/uL (0-0.7); Eosinophils % (A) 4 %; Glucose,Urine (UA) 4+ (Negative); Granular Casts,Urine 1 /lpf (0); HGB 11.5 gm/dL (13.0-17.5); Hyaline Casts,Urine 8 /lpf (0-2); Ketones,Urine Trace (Negative); Leukocyte Esterase,Urine Negative (Negative); Lymphocytes # (A) 1.3 k/uL (1.0-4.8); Lymphocytes % (A) 19 %; MCH 28.5 pg (25.0-35.0); MCHC 33.9 g/dL (31.0-37.0); MCV 83.8 fL (80.0-100.0); Mean Platelet Volume 7.3; Monocytes # (A) 0.3 k/uL (0-1.0); Monocytes % (A) 4 %; Mucus,Urine Rare /hpf; Neutrophils % (A) 71 %; Nitrite,Urine Negative (Negative); Platelet Count 274 k/uL (150-450); Protein,Urine 1+ (Negative); RBC 4.05 m/uL (4.30-5.90); RBC,Urine <1 /hpf (0-5); RDW 12.9 % (11.5-15.5); Specific Gravity,Urine 1.007 (1.001-1.035); Urobilinogen,Urine <2.0 mg/dL (<2.0); WBC,Urine <1 /hpf (0-5)
[2018-04-11 18:23] LABS: ALT 51 U/L (21-72); AST 47 U/L (17-59); Albumin 4.5 g/dL (3.5-5.0); Alkaline Phosphatase 76 U/L (38-126); Anion Gap 12 mmol/L; Blood Urea Nitrogen 21 mg/dL (9-20); Calcium 10.4 mg/dL (8.4-10.2); Carbon Dioxide 28 mmol/L (22-30); Chloride 97 mmol/L (98-107); Glucose 349 mg/dL (74-99); Potassium 4.7 mmol/L (3.5-5.1); Sodium 137 mmol/L (137-145); Total Bilirubin 0.5 mg/dL (0.2-1.3); Total Protein 7.3 g/dL (6.3-8.2)
[2018-04-11] MEDS ORDERED: INSULIN ASPART 100 UNIT/ML 1 ML 10 ML VIAL SQ ONE ×2 (18:47→20:11)
[2018-04-11 20:07] LABS: Glucose,Whole Blood 442 mg/dL (75-99)
[2018-04-11] MEDS ORDERED: LORazepam 2 MG/ML INJ IV STA (20:26)
[2018-04-11] MEDS ORDERED: SODIUM CHLORIDE 0.9% 500 ML 500 ML IV STA (21:03)
[2018-04-11] MEDS ORDERED: SODIUM CHLORIDE 0.9% 2,000 ML IV ONE (21:10)
[2018-04-11 21:30] LABS: Glucose,Whole Blood 371 mg/dL (75-99)
[2018-04-11 23:44] LABS: Glucose,Whole Blood 115 mg/dL (75-99)
[2018-04-12] MEDS ORDERED: HYDROcodone/APAP 5-325MG 1 EACH TAB PO STA (01:04)
[2018-04-12 02:26] VITALS: BP 174/102; PULSE 75
[2018-04-12 16:02] LABS: Hemoglobin A1C 10.6 % (4.0-6.0)
== END 2018-04-12 02:19 | disposition other institution (70) ==
LOC: EC 16:08
DX: F43.20 Adjustment disorder, unspecified (principal); E10.22 Type 1 diabetes mellitus with diabetic chronic kidney disease; I12.9 Hypertensive chronic kidney disease with stage 1 through stage 4 chronic kidney disease, or unspecified chronic kidney disease; N18.9 Chronic kidney disease, unspecified; G40.909 Epilepsy, unspecified, not intractable, without status epilepticus; F41.9 Anxiety disorder, unspecified; E10.43 Type 1 diabetes mellitus with diabetic autonomic (poly)neuropathy; K31.84 Gastroparesis; F17.200 Nicotine dependence, unspecified, uncomplicated; Z91.19 Patient's noncompliance with other medical treatment and regimen; Z79.899 Other long term (current) drug therapy; Z86.73 Personal history of transient ischemic attack (TIA), and cerebral infarction without residual deficits
CPT/HCPCS: 82075; 36415; 80053; 82009; 85025; 81001; 83036; 99285; 96374; 96361 ×5; J2060